=== PATIENT | female | born 1985 | race Hispanic/Latino ===

== ENCOUNTER 2025-03-22 09:12 | Emergency (ER) | payer BC, SELFPAY ==
[2025-03-22 09:14] VITALS: BP 117/87
--- NOTE | 2025-03-22 09:47 | ED.GENMED ---
History of Present Illness
General
Chief Complaint: Musculo-Skeletal Complaint
Source: patient
Exam Limitations: none
Time Seen by Provider: 03/22/25 09:17
History of Present Illness
History of Present Illness:
Patient twisted her left knee last evening. Now unable to bear weight. No other injury or complaint.
Review of Systems
Review of Systems
All Other Systems: Not applicable
Phy Exam
Physical Exam
Physical Exam:
General: Nontoxic appearing in no distress
Skin: Warm and dry, no rash
Neuro: Alert, nontoxic, grossly nonfocal
Psychiatric: Good eye contact and appropriate
Musculoskeletal: No obvious deformities to the left knee or left leg. Thigh normal. Able to straight leg raise. Some mild medial joint tenderness with stress. No laxity. Negative Julieta. No lateral tenderness. No crepitus. Good distal
pulses and color
Course
Orders/Labs/Results
Orders:
Orders
03/22/25 09:13
CR Knee - Left 4 Or More View* Urgent
Comment:
Reason For Exam: pain
03/22/25 09:46
Crutches-Treatment ONCE
03/22/25 09:47
Knee Immobilizer Left-Treatmen ONCE
Vital Signs
Initial and Last Documented VS:
Initial Vital Signs
Temp Pulse Resp BP Pulse Ox
98.6 F 76 16 117/87 97
03/22/25 09:14 03/22/25 09:14 03/22/25 09:14 03/22/25 09:14 03/22/25 09:14
Last Documented Vital Signs
Temp Pulse Resp BP Pulse Ox
98.6 F 76 16 117/87 97
03/22/25 09:14 03/22/25 09:14 03/22/25 09:14 03/22/25 09:14 03/22/25 09:49
MDM/Problems Addressed
Differential Diagnosis Includes:
Left knee sprain. No clinical ligamentous tear. Orthopedic follow-up.
*Radiology
Radiology exam reviewed: radiology read reviewed (Small effusion)
*Pulse Oximetry
SaO2: 97
Oxygen Mode of Delivery: Room air
Patient hypoxic: no
*Critical Care Note
Total Time (30-74mins, 75-104mins- exclusive of procedures): Not Applicable
ED Attending Note
-
Portions of this chart may have been created with voice recognition software.� Occasional wrong word or��sound alike� substitutions may have occurred due to the inherent limitations of voice recognition software.
Discharge Plan
Departure
Patient Disposition: Home (Routine Discharge)
Date of Disposition: 03/22/25
Time of Disposition: 09:49
Patient with high blood pressure during this ER visit?: Yes
Discharge Problem:
Left knee sprain
Instructions: Knee Sprain (DC), BLOOD PRESSURE
Referrals:
Jennie Davidson MD [Non-Admitting Privileges, Obstetrics Undelivered]
Ludwig Davidson MD [Active, Orthopedics] - Follow up in 5-7 days
Liban Coleman MD [Family Provider, Family Practice]
Interventions
Interventions:
*Risk Screen - Suicide Last Done: 03/22/25 09:14
*General Assessment Last Done: 03/22/25 09:14
*Neglect/Abuse Screening Last Done: 03/22/25 09:14
*ED- Fall Risk Assessment Last Done: 03/22/25 10:03
*ED COVID-19 Vaccine History Last Done: 03/22/25 10:03
*Nursing Disposition Last Done: 03/22/25 10:03
ED-Musculoskeletal Assessment Last Done: 03/22/25 10:03
Discharge Date and Time
Discharge Date/Time: 03/22/25 10:04
Print Language: DANISH
== END 2025-03-22 10:04 | disposition home or self-care (01) ==
LOC: EMR 09:12
PROVIDERS: EMERGENCY PHYSICIAN Emergency Medicine; FAMILY PHYSICIAN Family Medicine
DX: S83.92XA Sprain of unspecified site of left knee, initial encounter (principal); X50.1XXA Overexertion from prolonged static or awkward postures, initial encounter
CPT/HCPCS: 99283; 29505; 73564

== ENCOUNTER 2025-05-04 06:07 | Day surgery (SDC) | payer BC, SELFPAY ==
[2025-05-04] VITALS (8 sets, daily range): BP systolic 120–147; BP diastolic 76–89; BMI 30.5
[2025-05-04] MEDS: NORMOSOL-R/PLASMALYTE-A 1000 IV (11:59)
[2025-05-04] MEDS: ZOFRAN 4 MG IV (15:16)
== END 2025-05-04 16:10 | disposition home or self-care (01) ==
LOC: SDS 06:07
PROVIDERS: ATTENDING PHYSICIAN Orthopaedic Surgery
DX: S83.272A Complex tear of lateral meniscus, current injury, left knee, initial encounter (principal); X58.XXXA Exposure to other specified factors, initial encounter
CPT/HCPCS: 29881